=== PATIENT | male | born 1995 ===

== ENCOUNTER 2018-01-21 12:32 | Emergency (ER) | payer OTHER ==
[2018-01-21 12:46] VITALS: BMI 31.3
--- NOTE | 2018-01-21 13:04 | C.PDOC ---
History Of Present Illness 22 years old male presents to ED for complaints of digitally reproducible chest wall pain that began 3 days ago. 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 Denies any other physical complaints. Time Seen by Provider: 01/21/18 12:57 Chief Complaint (Nursing): Chest Pain History Per: Patient History/Exam Limitations: no limitations Onset/Duration Of Symptoms: Days (3) Current Symptoms Are (Timing): Still Present Modifying Factors: None Exacerbating Factors: None Alleviating Factors: None Recent travel outside of the [place]: No Past Medical History Reviewed: Historical Data, Nursing Documentation, Vital Signs - Medical History PMH: No Chronic Diseases Surgical History: No Surg Hx Family History: States: No Known Family Hx Review Of Systems Constitutional: Negative for: Fever, Chills Cardiovascular: Positive for: Other (Digitally reproducible chest wall pain ) Respiratory: Negative for: Shortness of Breath Gastrointestinal: Negative for: Nausea, Vomiting, Abdominal Pain, Diarrhea Skin: Negative for: Rash Neurological: Negative for: Weakness, Numbness Physical Exam - Physical Exam Appears: Non-toxic, No Acute Distress Skin: Normal Color, Warm, Dry, No Rash Head: Atraumatic, Normacephalic Eye(s): bilateral: Normal Inspection, PERRL, EOMI Oral Mucosa: Moist Neck: Normal ROM, Supple Chest: Symmetrical, No Tenderness, Other (Digitally reproducible parasternal upper boarder pain ) Cardiovascular: Rhythm Regular, No Murmur Respiratory: Normal Breath Sounds, No Decreased Breath Sounds, No Rales, No Rhonchi, No Wheezing Gastrointestinal/Abdominal: Normal Exam, Bowel Sounds (Active ), Soft, No Tenderness Extremity: Bilateral: Atraumatic, Normal Color And Temperature, Normal ROM Pulses: Left Radial: Normal, Right Radial: Normal Neurological/Psych: Oriented x3, Normal Speech Gait: Steady ED Course And Treatment ECG: Interpreted By Me ECG Rhythm: Sinus Rhythm ECG Interpretation: Normal Rate From EC O2 Sat by Pulse Oximetry: 100 (RA) Pulse Ox Interpretation: Normal Medical Decision Making Medical Decision Making: digitally and positionally reproducable R parasternal chest wall pain, works as sheetrocker- much overhead lifting normal ekg unlimited exercise tolerance. costochondritis Plan: * Motrin Disposition Doctor Will See Patient In The: Office Counseled Patient/Family Regarding: Studies Performed, Diagnosis - Disposition Referrals: Shaik Acosta MD [Staff Provider] - Disposition: HOME/ ROUTINE Disposition Time: 13:04 Condition: GOOD Additional Instructions: ice packs 1/2 hour per hour, nothing hot motrin/Advil/Ibuprofen 400-600 mg every 6 hours as needed no heavy lifting for 1 week NORMAL EKG Instructions: Costochondritis Forms: [facility] (Arabic) - Clinical Impression Clinical Impression: Chest wall discomfort - Scribe Statement The provider has reviewed the documentation as recorded by the Scribursula Rizo All medical record entries made by the Scribe were at my direction and personally dictated by me. I have reviewed the chart and agree that the record accurately reflects my personal performance of the history, physical exam, medical decision making, and the department course for this patient. I have also personally directed, reviewed, and agree with the discharge instructions and disposition.
[2018-01-21 13:12] VITALS: RESP 16
[2018-01-21 14:46] VITALS: O2SAT 100
--- NOTE | 2018-01-23 19:12 | CARD ---
APPROVED REPORT Date of service: 01/21/2018 EKG Measurement Heart [id number] <Conclusion> Normal sinus rhythm ST elevation, probably due to early repolarization Borderline ECG
== END 2018-01-21 13:11 | disposition home or self-care (01) ==
LOC: C.ER 12:32
DX: R07.89 Other chest pain (principal)